=== PATIENT | male | born 1940 | race Caucasian/White ===

== ENCOUNTER → 2022-04-17 | Day surgery (SDC) | payer MEDICARE, OTHER ==
[~2022-04-17] VITALS: Ht 154.9 cm; Wt 68.2 kg
[~2022-04-17] MED LIST: ATOR40TA28 PO; BUME1TAB34 PO; CLOP75TA60 PO; EMPA10TA3 PO; LIDOCAINE/PF 2% 5 ML VIAL IM ONE; LORA10TA7 PO; METO25 PO; POTA-206 PO; PROPOFOL 1% 20 ML VIAL IVP ONE; RIVA15TA PO; SACU1TAB PO; SODIUM CHLORIDE 0.9% 1,000 ML IV ONE; SODIUM CHLORIDE 0.9% 1,000 ML ONE
[2022-04-17 11:53] LABS: COVID AG,FIA SOURCE NASAL SWAB
== END | disposition home or self-care (01) ==
LOC: SURGERY 11:29
PROVIDERS: ATTEND Internal Medicine Gastroenterology
DX: K57.30 Diverticulosis of large intestine without perforation or abscess without bleeding (principal); K64.8 Other hemorrhoids; K31.89 Other diseases of stomach and duodenum; K29.60 Other gastritis without bleeding; I50.9 Heart failure, unspecified; E11.9 Type 2 diabetes mellitus without complications; I25.10 Atherosclerotic heart disease of native coronary artery without angina pectoris; I11.0 Hypertensive heart disease with heart failure; E78.5 Hyperlipidemia, unspecified; Z79.899 Other long term (current) drug therapy; Z98.890 Other specified postprocedural states; Z20.822 Contact with and (suspected) exposure to COVID-19; Z95.5 Presence of coronary angioplasty implant and graft
CPT/HCPCS: 45378; 43239; 88305; 88312; 93005; 87426; C1769; J2704; J3490; J7030; C9803